=== PATIENT | female | born 1990 | race Caucasian/White ===

== ENCOUNTER 2023-10-05 07:56 | Outpatient (CLI) | payer MEDICAID | END 2023-10-05 23:59 | disposition home or self-care (01) | LOC: RAD 07:56 | PROVIDERS: ATTEND Nurse Practitioner Family | DX: R07.89 Other chest pain (principal) | CPT/HCPCS: 71046 ==

== ENCOUNTER → 2023-11-30 | Outpatient (CLI) | payer MEDICAID | END | disposition home or self-care (01) | LOC: RAD 16:45 | PROVIDERS: ATTEND Family Medicine | DX: M25.561 Pain in right knee (principal) | CPT/HCPCS: 73564 ==

== ENCOUNTER 2025-02-18 10:36 | Emergency (ER) | payer MEDICAID ==
[~2025-02-18] VITALS: Ht 167.6 cm; Wt 93.2 kg
[2025-02-18 10:50] VITALS: BP 153/107; PULSE 87; TEMP 98.8; O2SAT 99
--- NOTE | 2025-02-18 10:59 | Physician Documentation ---
HPI ~ General Chief Complaint: Tooth Problem Stated Complaint: TOOTH PAIN Time Seen by MD: 10:53 Primary Medical Doctor: None History of Present Illness HPI Comment This 34-year-old female presents to the ED with a complaint of left-sided mouth pain. States he has some dental issues that need work but has not been able to get into a dentist because she has not infection currently. Denies any fevers but reports increased pain and swelling in the left side of her cheek and mouth Medication Reconciliation Allergies: Coded Allergies: No Known Allergies (Unverified , 02/18/25) Scheduled Amoxicillin Trihydrate* (Amoxicillin*), 1 CAP PO Q8H Scheduled PRN Hydrocodone Bit/Acetaminophen 5/325 MG ([place] 5/325 MG), 1 TAB PO Q6H PRN for pain Review of Systems All Other Systems at this time: Reviewed and Negative ROS As stated above in the HPI, otherwise all systems are reviewed and negative. Physical Exam Vital Signs: Temperature: 98.8, Source: Temporal, Heart Rate: 87, Respiratory Rate: 18, BP: 153/107, Pulse Oximetry: 99, Weight: 93.180 Oxygen Flow Rate: 0 Physical Exam General: Alert, no apparent distress. HEENT: PERRL, EOMI, no injection, moist mucous membranes. notable broken and caried Upper left molar with surrounding tissue sweling, Neurologic: Oriented x4. Psychiatric: Normal mood and affect. Skin: Normal color, warm and dry. No edema, no ecchymosis. Progress Results/Orders Results/Orders Completed Orders - ALVARO SALAS NP Hydrocodone/Apap 10/325 ([place] 10/325mg (02/18/25 11:00) Ketorolac Trometh 15mg/Ml Vial (Toradol (02/18/25 11:00) Amoxicillin Capsule (Trimox Capsule) (02/18/25 11:00) Medications Received in ER Medications (Trade) Dose Ordered Sig/Danica Route PRN Reason Start Time Stop Time Status Last Admin Dose Admin ([place] 10/325mg tab) 1 tab ONCE ONCE PO 02/18/25 11:00 02/18/25 11:01 DC 02/18/25 11:18 1 TAB (Toradol injection) 15 mg ONCE ONCE IM 02/18/25 11:00 02/18/25 11:01 DC 02/18/25 11:18 15 MG (Trimox capsule) 500 mg ONCE ONCE PO 02/18/25 11:00 02/18/25 11:01 DC 02/18/25 11:17 500 MG Vital Signs 02/18/25 02/18/25 02/18/25 10:50 11:18 11:18 Temp 98.8 Pulse 87 Resp 18 12 12 B/P (MAP) 153/107 Pulse Ox 99 O2 Flow Rate 0 Medical Decision Making Findings Patient has a notable tooth infection in her upper left molar region treat her for pain and advised her to start antibiotics before following up with her dentist Differential Dx:Considerations: Include: Alveolar fracture, Alveolar osteitis, ANUG, Facial Cellulitis, Periapical abscess, Peridontal abscess, Post-extraction bleeding, Pulpitis, Tooth avulsion, Tooth eruption, Tooth Fracture, Trigeminal neuralgia, Tooth subluxation, Other Departure Disposition: HOME / SELF CARE / HOMELESS Impression: Primary Impression: Dental caries Condition: Improved Discharge Instructions: Dental Pain, Dental Caries, Adult Additional Instructions: take the medication prescribed as directed and make sure to follow up with your dentist for further evaluation Referrals: NO PRIMARY CARE PROVIDER (PCP) Prescriptions Amoxicillin Trihydrate* (Amoxicillin*) 500 Mg Capsule 1 CAP PO Q8H for 10 Days, #30 CAP Prov: ALVARO SALAS BUTTON SAWYER 02/18/25 Hydrocodone Bit/Acetaminophen 5/325 MG ([place] 5/325 MG) 5 Mg/325 Mg Tablet 1 TAB PO Q6H PRN for pain, #14 TAB Prov: ALVARO SALAS NP 02/18/25 Education Educated: Patient Educated regarding: diagnosis Signature Scribe Signature: g Attestation: Scribed for Alvaro Salas Line Repairer by Alvaro Miranda NP . 02/18/25 17:32 ALVARO SALAS NP Feb 18, 2025 10:59
[2025-02-18] MEDS ORDERED: HYDR-3965 PO (11:07)
[2025-02-18] MEDS ORDERED: AMOX500C2 PO (11:07)
[2025-02-18 11:18] VITALS: RESP 12
[2025-02-18] MEDS: HYDROcodone/acetaminophen 10/325mg tab PO ONE (11:18)
[2025-02-18] MEDS: ketorolac trometh 15mg/ml vial 15 MG/ML ML IM ONE (11:18)
== END 2025-02-18 11:54 | disposition home or self-care (01) ==
LOC: ER 10:36
DX: K02.9 Dental caries, unspecified (principal)
CPT/HCPCS: 96372; 99283; J1885

== ENCOUNTER 2025-02-20 08:09 | Emergency (ER) | payer MEDICAID ==
[~2025-02-20] VITALS: Ht 170.2 cm; Wt 104.5 kg
[~2025-02-20 08:09] MED LIST: AMOX500C2 PO; HYDR-3965 PO
[2025-02-20 08:20] VITALS: TEMP 98.2
--- NOTE | 2025-02-20 08:46 | Physician Documentation ---
HPI ~ General Chief Complaint: Tooth Problem Stated Complaint: MOUTH PAIN Time Seen by MD: 08:46 Primary Medical Doctor: None History of Present Illness HPI Comment This is a 34-year-old female who presents to the emergency department for left upper dental pain. Was seen in this emergency department two days ago, and given 14 hydrocodone and a course of amoxicillin. Returns today reporting no improvement whatsoever. Severe pain, but denies chills or fever. Has called every dentist she can think of, and has had no success getting an appointment. Medication Reconciliation Allergies: Coded Allergies: No Known Allergies (Unverified , 02/18/25) Scheduled Amox Tr/Potassium Clavulanate (Augmentin 875-125 Tablet), 1 TAB PO Q12H Amoxicillin Trihydrate* (Amoxicillin*), 1 CAP PO Q8H Chlorhexidine Gluconate (Chlorhexidine Gluconate), 15 ML PO Q12H Scheduled PRN Hydrocodone Bit/Acetaminophen 5/325 MG ([place] 5/325 MG), 1 TAB PO Q6H PRN for pain Review of Systems ROS As stated above in the HPI, otherwise all systems are reviewed and negative. Physical Exam Vital Signs: Temperature: 98.2, Source: Temporal, Heart Rate: 81, Respiratory Rate: 18, BP: 127/94, Pulse Oximetry: 98, Weight: 104.550 Oxygen Flow Rate: 0 Physical Exam General: Moderate distress due to pain, cries on exam. HEENT: PERRL, EOMI, no injection, moist mucous membranes. Broken tooth left upper jaw with just tiny residual piece left in gum. Adjacent tooth is cracked. Erythema surrounds both teeth but no abscess is noted. No trismus. Uvula visible/midline posterior. Neck: Full range of motion. Respiratory: Lungs clear, no respiratory distress. Chest: No accessory muscle use. Cardiovascular: Regular rate and rhythm, no murmurs. Gastrointestinal: Soft, nontender, nondistended. Bowels sounds present. Extremities: Normal range of motion, no deformity. Neurologic: Oriented x4. Psychiatric: Normal mood and affect. Skin: Normal color, warm and dry. No edema, no ecchymosis. Progress Results/Orders Results/Orders Completed Orders - LYNETTE OVERTON NP Cbc/Diff (02/20/25 09:07) BMP (02/20/25 09:07) Ketorolac Trometh 30mg/Ml Vial (Toradol (02/20/25 09:15) Ondansetron Disint. Tablet (Zofran Odt T (02/20/25 09:15) Medications Received in ER Medications (Trade) Dose Ordered Sig/Danica Route PRN Reason Start Time Stop Time Status Last Admin Dose Admin (Toradol inj. 30mg/ml) 30 mg ONCE ONCE IM 02/20/25 09:15 02/20/25 09:16 DC 02/20/25 09:45 30 MG (Zofran ODT tablet) 4 mg ONCE ONCE PO 02/20/25 09:15 02/20/25 09:16 DC 02/20/25 09:44 4 MG Vital Signs 02/20/25 02/20/25 02/20/25 08:20 10:34 10:35 Temp 98.2 Pulse 81 99 Resp 18 18 18 B/P (MAP) 127/94 132/93 Pulse Ox 98 99 O2 Flow Rate 0 Laboratory Tests Test 02/20/25 09:17 White Blood Count 9.9 Red Blood Count 5.05 Hemoglobin 14.6 Hematocrit 43.2 Mean Corpuscular Volume 85.7 Mean Corpuscular Hemoglobin 29.0 Mean Corpuscular Hemoglobin Concent 33.9 Red Cell Distribution Width 14.8 H Platelet Count 429 Mean Platelet Volume 7.2 L Neutrophils (%) (Auto) 74.8 Lymphocytes (%) (Auto) 17.0 L Monocytes (%) (Auto) 6.7 Eosinophils (%) (Auto) 1.1 Basophils (%) (Auto) 0.4 Neutrophils # (Auto) 7.4 Lymphocytes # (Auto) 1.7 Monocytes # (Auto) 0.7 Eosinophils # (Auto) 0.1 Basophils # (Auto) 0.0 CBC Comment Sodium Level 138 Potassium Level 4.4 Chloride Level 104 Carbon Dioxide Level 23.1 L Anion Gap 11 Blood Urea Nitrogen 5 L Creatinine 0.93 H Estimated GFR/1.73 m2 69 BUN/Creatinine Ratio 5.4 L Glucose Level 106 H Calcium Level 9.3 Albumin 4.3 Chemistry Comments Medical Decision Making Differential Dx:Considerations: Include: Alveolar fracture, Alveolar osteitis, ANUG, Facial Cellulitis, Periapical abscess, Peridontal abscess, Post-extraction bleeding, Pulpitis, Tooth avulsion, Tooth eruption, Tooth Fracture, Trigeminal neuralgia, Tooth subluxation Departure Time of Disposition: 10:05 Disposition: 01 HOME / SELF CARE / HOMELESS Impression: Primary Impression: Disturbances in tooth eruption Additional Impression: Toothache Condition: Stable Discharge Instructions: Dental Caries, Adult, Dental Pain Additional Instructions: Stop the amoxicillin. Start the Augmentin (amoxicillin/clavulanate). Your labs are very reassuring that you do not have a serious, wide-spread infection. Add the medicated mouth rinse that you are being prescribed to your mouth care regimen. Keep trying to find a Dentist to see you. Try [facility] and Dr. Okeefe, they may have availability. Continue to use the previously prescribed hydrocodone you were already given. Take Ibuprofen 800 mg every 8 hrs as needed for pain. Return for severe facial swelling, difficulty opening jaw, fever over 101. I hope you feel better soon. Referrals: NO PRIMARY CARE PROVIDER (PCP) Prescriptions Hydrocodone Bit/Acetaminophen 5/325 MG ([place] 5/325 MG) 5 Mg/325 Mg Tablet 1 TAB PO Q6H PRN for pain for 3 Days, #9 TAB Prov: LYNETTE OVERTON NP 02/20/25 Chlorhexidine Gluconate (Chlorhexidine Gluconate) 0.12 % Mouthwash 15 ML PO Q12H for 14 Days, #473 ML 0 Refills Swish and spit Prov: LYNETTE OVERTON NP 02/20/25 Amox Tr/Potassium Clavulanate (Augmentin 875-125 Tablet) 1 Each Tablet 1 TAB PO Q12H for 7 Days, #14 TAB Prov: LYNETTE OVERTON NP 02/20/25 Education Educated: Patient Educated regarding: diagnosis, treatment, prognosis, need for follow up Signature Scribe Signature: x Attestation: The note accurately reflects work and decisions made by me.Lynette Miranda NP 02/20/25 09:08 LYNETTE OVERTON NP Feb 20, 2025 08:46
[2025-02-20 09:26] LABS: MEAN PLATELET VOLUME 7.2 FL (7.4-10.4); RED CELL DISTRIBUTION WIDTH 14.8 % (11.5-14.5)
[2025-02-20] MEDS: ondansetron 4mg rapidly disintigrating tab PO ONE (09:44)
[2025-02-20] MEDS: ketorolac trometh 30MG/ML vial 30 MG/ML VIAL IM ONE (09:45)
[2025-02-20 09:46] LABS: CREATININE 0.93 MG/DL (0.40-0.90); TOTAL CARBON DIOXIDE 23.1 MMOL/L (24-32); eCRCL 84 ML/MIN; eGFR 69 ML/MIN
[2025-02-20] MEDS ORDERED: AMOX-117 PO (10:08)
[2025-02-20] MEDS ORDERED: CHLO473M2 PO (10:08)
[2025-02-20 10:35] VITALS: BP 132/93; PULSE 99; RESP 18; O2SAT 99
[2025-02-20] MEDS ORDERED: HYDR-3965 PO (10:39)
== END 2025-02-20 10:37 | disposition home or self-care (01) ==
LOC: ER 08:09
DX: K00.6 Disturbances in tooth eruption (principal); K08.89 Other specified disorders of teeth and supporting structures; Z79.899 Other long term (current) drug therapy
CPT/HCPCS: 36415; 80048; 85025; 96372; 99283; J1885